=== PATIENT | male | born 1955 | race Caucasian/White ===

== ENCOUNTER 2021-11-22 11:12 | Emergency (ER) | payer SELFPAY ==
[2021-11-22 11:13] VITALS: BP 125/82; PULSE 97; RESP 20; TEMP 36.4; O2SAT 97; BMI 23.5
--- NOTE | 2021-11-22 11:24 | ECG_ITS ---
[facility] Test Date: 2021-11-22 Pat Name: Tristen Chaves Department: Room: Gender: Male Fisher: : 1955 Requested By: Morales Price Order Number: [id number] Oro MD: Douglas Hooper M.D. Measurements Intervals [place] Rate: 91 P: 25 NM: 152 QRS: 29 QRSD: 87 T: 71 QT: 344 QTc: 425 Interpretive Statements SINUS RHYTHM Compared to ECG 10/25/2018 14:25:05 No significant changes Electronically Signed On 11-22-2021 14:23:40 CDT by Douglas Hooper M.D. [id number]
--- NOTE | 2021-11-22 11:24 | XR_ITS ---
WS: [id number] Portable AP upright chest, 11/22/2021 Clinical Data: cp Comparison: Portable chest, 10/23/2018. Findings: No nodules, masses or effusions are seen. The heart is normal. The pulmonary vascularity is not increased. No pneumonia or pneumothorax is seen. The aortic arch and descending thoracic aorta s how minimal calcification and tortuosity. Monitor leads are on the chest wall. There is minimal right pleural reaction. XR/XR chest 1V portable [id number] Impression: Atherosclerosis.
--- NOTE | 2021-11-22 11:26 | W.ED.CHESTPA ---
HPI - Chest Pain General: Chief Complaint: Chest Pain Stated Complaint: chest pain Time Seen by Provider: 11/22/21 11:26 History of Present Illness: Mr. Chaves is a 66-year-old gentleman with history of hypertension, hyperlipidemia, CAD with history of MD, continued tobacco use, medication noncompliance who presents to the emergency department due to chest pain. He reports onset of symptoms approximately 2 days ago with left chest pain without significant radiation. Since that time severe pain has persisted associated with nausea, 1 episode of vomiting, and generalized weakness and malaise. Overall course of symptoms has persisted. This feels different than prior episodes of chest pain. He does have a history of MD. No other specific changes in health, exacerbating, or alleviating factors identified. Onset (ago): day(s) Timing of current episode: constant Prior episodes: Yes Onset: during rest Pain location: left chest Severity: severe Quality: other Associated symptoms: Reports dyspnea, nausea and other Review of Systems General: Reports: 10 or more systems reviewed and unremarkable except in HPI and below Resp: Reports: dyspnea GI: Reports: nausea PFSH ED PFSH: Medical History Anorexia CAD (coronary artery disease) Chronic alcoholism Depression GERD (gastroesophageal reflux disease) History of MD (myocardial infarction) Hypertension Smoker Surgical History (Updated 11/23/21 @ 14:00 by Geo Perdomo MD) H/O heart artery stent Post PCI with drug-eluting stent to PDA and LAD in 2017 Family History (Updated 11/23/21 @ 14:01 by Geo Perdomo MD) Other CAD (coronary artery disease) Social History (Updated 11/23/21 @ 14:01 by Geo Perdomo MD) Smoking and tobacco status: current every day smoker Alcohol intake: current Alcohol intake frequency: few times a week Alcohol type: hard liquor Desire information about alcohol rehabilitation?: No Counseling given: Yes Caregiver/support person: Yes Lives independently: Yes Household members: family Housing: House Physical Exam Const: COMMON NORMALS: alert GENERAL APPEARANCE: cooperative, well developed and ill appearing (Mildly) HENMT: COMMON NORMALS: normocephalic and atraumatic HEAD & SCALP: normocephalic and atraumatic Eye: COMMON NORMALS: conjunctivae normal CONJUNCTIVA: Yes conjunctivae normal SCLERA: sclerae normal Neck/C-Spine: COMMON NORMALS: supple GENERAL: Yes trachea midline Resp: COMMON NORMALS: normal respiratory effort and clear to auscultation bilaterally EFFORT & INSPECTION: Yes able to speak in complete sentences AUSCULTATION: clear to auscultation bilaterally Cardio: COMMON NORMALS: regular rate and regular rhythm RATE: regular rate RHYTHM: regular rhythm GI: COMMON NORMALS: Soft to palpation PALPATION: Yes Soft to palpation and No Tenderness to palpation present (GI) Extremity: GENERAL: Yes normal exam except as noted and No edema Neuro: COMMON NORMALS: moves all extremities SENSORIUM/ORIENTATION: Yes alert and No Orientation impaired Psych: COMMON NORMALS: mental status grossly normal and Normal thought process present THOUGHT PROCESS: Normal thought process present Course ED course: - Patient was seen and evaluated by me at bedside - Patient placed on cardiac monitors, IV access obtained - Initial evaluation notable for exam as above. EKG shows sinus rhythm, no STEMI - Labs and xrays personally interpreted by me -Aspirin given - Labs notable for minimal leukocytosis, normal hemoglobin. Metabolic panel without acute electrolyte derangement to explain symptoms. Given description of symptoms and patient cannot be ruled out by PERC/Wells D-dimer ordered and was elevated. Delta troponin is negative. - Imaging notable for no lobar consolidation or pneumothorax. CTA with no evidence of PE. Incidental findings discussed. - Upon serial reexamination after treatment the patient was improved - Based on patient history, evaluation, and testing as interpreted the most likely cause of the patient's condition is chest pain of uncertain etiology - The results of ED evaluation were discussed with the patient including possible disposition options. I discussed risk stratification by heart score and estimated risk of major adverse cardiac events. The patient wishes to proceed with outpatient management. I discussed prescriptions and/or symptomatic cares (if applicable) including appropriate and responsible use, followup plan, and return precautions. The patient verbalized understanding and felt safe for discharge. - Patient discharged in satisfactory condition. Note: Click bubbles or prepopulated tarango in note writing are used for assistance with data collection and billing and are inherently more limited than narrative and other text portions of this note. Please use narrative for additional clinical history and defer to narrative/free test for any case of contradictory information. If information appears in only free text or click bubble it should be considered present or absent as reported. Please contact note global technical writer for clarifications of clinical information or contradictory information. MDM is a brief summary, contradictory or erroneous seeming information should be clarified and full note should be reviewed. Vital Signs: Vital signs: Vital Signs Temperature 97.6 F 11/22/21 11:13 Pulse Rate 80 11/22/21 14:07 Respiratory Rate 21 H 11/22/21 14:07 Blood Pressure 137/93 11/22/21 14:07 Pulse Oximetry 98 11/22/21 14:07 Oxygen Delivery Me thod 11/22/21 11:13 MDM - Chest Pain Medical Decision Making 66-year-old gentleman presenting with chest pain. Unclear etiology based on ED evaluation. Patient desires outpatient management. Strict return precautions given. Medical Records I reviewed the patient's medical records. Lab Data I reviewed the patient's lab results. : 11/22/21 11:54 11/22/21 11:54 Radiology Impressions Chest X-Ray 11/22/21 11:24 Impression: Atherosclerosis. Chest CTA 11/22/21 12:27 IMPRESSION: 1. No evidence for pulmonary embolus. 2. Slightly prominent ascending thoracic aorta measuring 3.6 cm unchanged. 3. No acute pulmonary infiltrates. 4. 4.5 mm noncalcified nodule RIGHT middle lobe. This is unchanged since 2017 5. Mild chronic compression of T3 is unchanged. Laboratory Results WBC 11.0 10^3/uL (4.0-10.0) H 11/22/21 11:54 RBC 4.21 10^6/uL (4.1-5.3) 11/22/21 11:54 Hgb 14.4 g/dL (11.7-16.6) 11/22/21 11:54 Hct 41.2 % (42.0-52.0) L 11/22/21 11:54 MCV 97.9 fl (80-94) H 11/22/21 11:54 MCH 34.2 pg (28.0-34.0) H 11/22/21 11:54 MCHC 35.0 g/dL (30.0-36.0) 11/22/21 11:54 RDW 13.1 % (12.1-15.1) 11/22/21 11:54 Plt Count 266 10^3/cmm (130-400) 11/22/21 11:54 MPV 9.6 fL (7.4-10.4) 11/22/21 11:54 Neut % (Auto) 74.7 % 11/22/21 11:54 Lymph % (Auto) 11.5 % 11/22/21 11:54 Daniels % (Auto) 10.7 % 11/22/21 11:54 Eos % (Auto) 2.1 % 11/22/21 11:54 Baso % (Auto) 0.5 % 11/22/21 11:54 Neut # (Auto) 8.20 10^3/uL (1.8-7.7) H 11/22/21 11:54 Lymph # (Auto) 1.3 10^3/uL (0.8-4.8) 11/22/21 11:54 Daniels # (Auto) 1.2 10^3/uL (0.2-0.9) H 11/22/21 11:54 Eos # (Auto) 0.2 10^3/uL (0.0-0.8) 11/22/21 11:54 Baso # (Auto) 0.1 10^3/uL (0.0-0.1) 11/22/21 11:54 Nucleated RBC % (auto) 0 % 11/22/21 11:54 Nucleated RBCs # 0.0 /100WBC 11/22/21 11:54 D-Dimer 3.67 ug/mIFEU (0-0.59) H 11/22/21 11:54 Sodium 139 mmol/L (136-145) 11/22/21 11:54 Potassium 4.1 mmol/L (3.5-5.1) 11/22/21 11:54 Chloride 101 mmol/L (98-107) 11/22/21 11:54 Carbon Dioxide 24 mmol/L (22-29) 11/22/21 11:54 Anion Gap 18.1 (5-19) 11/22/21 11:54 BUN 31 mg/dL (8-23) H 11/22/21 11:54 Creatinine 1.1 mg/dL (0.7-1.2) 11/22/21 11:54 GFR Calculation 67.2 mL/min (90-130) L 11/22/21 11:54 Glucose 93 mg/dL (65-115) 11/22/21 11:54 Calculated Osmolality 294 mOsm/kg (285-295) 11/22/21 11:54 Calcium 9.5 mg/dL (8.5-10.5) 11/22/21 11:54 Total Bilirubin 0.3 mg/dL (0.15-1.2) 11/22/21 11:54 AST 36 U/L (0-40) 11/22/21 11:54 ALT 26 U/L (0-41) 11/22/21 11:54 Alkaline Phosphatase 98 U/L (40-130) 11/22/21 11:54 Troponin T Baseline 11 ng/L (0-15) 11/22/21 11:54 Troponin T 120 Minute 10.92 ng/L (0-15) 11/22/21 13:40 Delta Troponin T -0.08 ABS# (0-10) L 11/22/21 13:40 NT-Pro-B Natriuret Pep 87 pg/mL (0-125) 11/22/21 11:54 Total Protein 7.6 g/dL (6.6-8.7) 11/22/21 11:54 Albumin 4.0 g/dL (3.5-5.2) 11/22/21 11:54 Globulin 3.6 g/dL (1.3-4.6) 11/22/21 11:54 Lipase 29 U/L (13-60) 11/22/21 11:54 SARS-CoV-2 Ag (Rapid) Negative (Negative) 11/22/21 Unknown Discharge Plan Discharge Patient Disposition: Home Clinical Impression: Chest pain, History of MD (myocardial infarction), CAD (coronary artery disease) Condition: Stable Prescriptions: No Action losartan 50 mg Tablet 50 mg PO DAILY Qty: 30 0RF Vitamin B-12 1,000 mcg Tablet 1,000 mcg PO DAILY Qty: 30 0RF famotidine 20 mg Tablet 20 mg PO BID Qty: 60 0RF metoprolol tartrate 50 mg Tablet 50 mg PO BID@0900,2100 Qty: 60 0RF folic acid 1 mg Tablet 1 mg PO BID Qty: 60 0RF aspirin 81 mg Tablet,Delayed Release (Dr/Ec) 81 mg PO DAILY Qty: 30 0RF atorvastatin 40 mg tablet 40 mg PO DAILY Qty: 30 0RF Discharge Orders: Discharge ED (Routine); Ordered 11/22/21 Ordered By: Morales Price Referrals: Nicholas Marte MD [Primary Care Provider] - Discharge Diet: Usual diet Discharge Activity: Increase activity as tolerated Patient Instructions: Chest Pain (ED) Activity Restrictions/Additional Instructions: Thank you for visiting the emergency department. You were seen evaluated for chest pain. The exact cause of your chest pain is unclear however given your history does require further evaluation. You are electing to have this performed in the outpatient environment. I will message case management for follow-up regarding outpatient cardiology follow-up and stress test. Please establish and follow-up with a primary care provider as well. Return to the emergency department for worsening symptoms or anything else that you are concerned about a feel needs emergency department evaluation. 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
--- NOTE | 2021-11-22 11:41 | PC.PHAR ---
pt states takes metoprolol prn states this is his mothers rx-states the bottle has take one and one-half tab bid pt states he just takes one tab daily prn-pt states he is unsure if its tartrate or succinate-pt states he had a proair inhaler but no longer has rx filled 03/19/21-notes are made in the pharmacy comments-pt states takes no other medications
[2021-11-22 11:42] VITALS: BP 131/90; PULSE 88; RESP 18; O2SAT 98
[2021-11-22] MEDS: aspirin 81 mg Chew Tablet 324 MG PO (11:49)
[2021-11-22 12:00] LABS: Basophils # 0.1 10^3/uL (0.0-0.1); Basophils % 0.5 %; Eosinophils # 0.2 10^3/uL (0.0-0.8); Eosinophils % 2.1 %; Hematocrit 41.2 % (42.0-52.0); Hemoglobin 14.4 g/dL (11.7-16.6); Lymphocytes # 1.3 10^3/uL (0.8-4.8); Lymphocytes % 11.5 %; Mean Corpuscular Hemoglobin 34.2 pg (28.0-34.0); Mean Corpuscular Volume 97.9 fl (80-94); Mean Platelet Volume 9.6 fL (7.4-10.4); Monocytes # 1.2 10^3/uL (0.2-0.9); Monocytes % 10.7 %; Neutrophils % 74.7 %; Nucleated Red Blood Cells % 0 %; Platelet Count 266 10^3/cmm (130-400); Red Blood Count 4.21 10^6/uL (4.1-5.3); Red Cell Distribution Width 13.1 % (12.1-15.1)
--- NOTE | 2021-11-22 12:17 | PC.NURSE ---
Patient placed on continuous cardiac and SPo2 monitor
[2021-11-22 12:20] LABS: Troponin(5th) Baseline 11 ng/L (0-15)
[2021-11-22 12:26] LABS: D Dimer 3.67 ug/mIFEU (0-0.59)
--- NOTE | 2021-11-22 12:27 | CT_ITS ---
WS: [id number] CTA OF THE CHEST WITH PULMONARY EMBOLISM PROTOCOL TECHNIQUE: High-resolution contrast enhanced CTA of the chest with coronal and sagittal reformatted i mones with pulmonary embolism protocol. MIP images are also reviewed. CLINICAL INFORMATION: Chest pain, elevated D-dimer, ?history of cancer COMPARISON: CTA chest 2016. CT chest 2017 DLP: 415.[address] scans at [facility] use at least one of these dose optimization techniques: automated e xposure control; mA and/or kV adjustment per patient size (includes targeted exams where dose is matc hed to clinical indication); or iterative reconstruction. FINDINGS: Proximal main pulmonary arteries are normal. Normal segmental and subsegmental pulmonary arteries. No evidence of pulmonary embolus. Ascending thoracic aorta measures 3.6 cm. Normal caliber descending t horacic aorta. Mild aortic calcification. Small numerous anterior mediastinal and peribronchial lymph nodes. No axillary lymphadenopathy. Moderate chronic emphysematous changes. No acute pulmonary infiltrates. No focal pneumonia or pleural fluid. Slight bibasilar atelectasis. Calcified granulomas RIGHT middle lobe. Noncalcified nodule RIG HT upper lobe measuring 4.5 mm. Normal GE junction. Adrenal glands are normal. Chronic anterior wedging in the upper thoracic spine. CT/CT angio chest PE protcl [id number] IMPRESSION: 1. No evidence for pulmonary embolus. 2. Slightly prominent ascending thoracic aorta measuring 3.6 cm unchanged. 3. No acute pulmonary infiltrates. 4. 4.5 mm noncalcified nodule RIGHT middle lobe. This is unchanged since 2017 5. Mild chronic compression of T3 is unchanged.
[2021-11-22 12:28] LABS: Alanine Aminotransferase 26 U/L (0-41); Alkaline Phosphatase 98 U/L (40-130); Anion Gap 18.1 (5-19); Aspartate Amino Transferase 36 U/L (0-40); Blood Urea Nitrogen 31 mg/dL (8-23); Calcium 9.5 mg/dL (8.5-10.5); Carbon Dioxide 24 mmol/L (22-29); Chloride 101 mmol/L (98-107); Creatinine Clr Calc Pharmacy 78.1466; Globulin 3.6 g/dL (1.3-4.6); Glomerular Filtration Rate 67.2 mL/min (90-130); Glucose 93 mg/dL (65-115); Lipase 29 U/L (13-60); NT Pro B Type Natriuretic Pept 87 pg/mL (0-125); Osmolality Calculated 294 mOsm/kg (285-295); Potassium 4.1 mmol/L (3.5-5.1); Sodium 139 mmol/L (136-145); Total Bilirubin 0.3 mg/dL (0.15-1.2); Total Protein 7.6 g/dL (6.6-8.7)
[2021-11-22 12:32] LABS: SARS Covid-2 Antigen Negative (Negative)
[2021-11-22] MEDS: iohexol 350 mg/mL 100 mL Btl IV (13:10)
--- NOTE | 2021-11-22 13:23 | ECG_ITS ---
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 Measurements Intervals [place] Rate: 75 P: 50 AL: 170 QRS: 38 QRSD: 87 T: 69 QT: 391 QTc: 437 Interpretive Statements SINUS RHYTHM Compared to ECG 11/22/2021 11:24:26 No significant changes Electronically Signed On 11-22-2021 14:37:48 CDT by Douglas Hooper M.D. [id number]
[2021-11-22 14:01] LABS: Troponin 5 2HR 10.92 ng/L (0-15)
[2021-11-22 14:06] LABS: Troponin 5 2HR Delta -0.08 ABS# (0-10)
[2021-11-22 14:07] VITALS: BP 137/93; PULSE 80; RESP 21; O2SAT 98
--- NOTE | 2021-11-22 17:12 | DCPLANNER ---
Addendum entered by Lucinda Gomes 03/14/22 14:07: Patient had a follow up appointment scheduled with heart care - patient did not attend appointment. Addendum entered by Lucinda Gomes 11/27/21 08:31: Patient has a follow up appointment scheduled for , January 23, 2022 at 3:[address] Richard at [facility]. Clinic will call patient with appointment information. Original Note: commercial finance manager had message to schedule a follow up appointment for patient with cardiology. commercial finance manager sent patients information to the front office staff at [facility]. Patients information will be printed and reviewed. Clinic will call patient with appointment information.
--- NOTE | 2021-11-22 17:24 | DCPLANNER ---
Addendum entered by Lucinda Gomes 03/05/22 10:59: Patient did not attend the echo scheduled for 12.18.21 Addendum entered by Lucinda Gomes 11/28/21 11:42: industrial production manager also had message to schedule an echo cardiogram for patient. Patient has an echo scheduled for Saturday, December 18, 2021 at 6:15. Centralized scheduling will call patient with appointment information. Addendum entered by Lucinda Gomes 11/26/21 09:06: Patient had a stress test scheduled for 11.25.21 - patient did attend stress test. Original Note: industrial production manager had message to schedule an outpatient stress test for patient. industrial production manager faxed signed order to centralized scheduling who will call patient with appointment information.
== END 2021-11-22 14:09 | disposition home or self-care (01) ==
PROVIDERS: Emergency Provider Emergency Medicine; PCP Family Medicine
DX: R07.9 Chest pain, unspecified (principal); I25.2 Old myocardial infarction; I25.10 Atherosclerotic heart disease of native coronary artery without angina pectoris; Z79.82 Long term (current) use of aspirin; Z20.822 Contact with and (suspected) exposure to COVID-19; I10 Essential (primary) hypertension; F17.210 Nicotine dependence, cigarettes, uncomplicated
CPT/HCPCS: 71045; 71275; 80053; 83690; 83880; 84484; 85025; 85378; 87426; 93005; 99285; Q9967

== ENCOUNTER 2021-11-23 09:52 | Observation (INO) | payer SELFPAY ==
[2021-11-23] VITALS (8 sets, daily range): BP systolic 145–196; BP diastolic 85–106; PULSE 68–87; RESP 16–22; TEMP 36.3–36.9; O2SAT 94–97; BMI 23.5
--- NOTE | 2021-11-23 10:04 | XRR_ITS ---
PROCEDURE INFORMATION: Exam: XR Chest Exam date and time: 11/23/2021 10:48 AM Age: 66 years old Clinical indication: Pain; Angina pectoris; Additional info: Chest pain TECHNIQUE: Imaging protocol: Radiologic exam of the chest. Views: 1 view. COMPARISON: CR XR chest 1V portable [id number] 11/22/2021 11:28 AM FINDINGS: Lungs: No focal airspace disease. Pleural spaces: Unremarkable. No pleural effusion. No pneumothorax. Heart/Mediastinum: Cardiomediastinal silhouette is within normal limits. Bones/joints: Unremarkable. XR/XR chest 1V portable [id number] IMPRESSION: No acute cardiopulmonary abnormality.
--- NOTE | 2021-11-23 10:06 | ED_ITS ---
HPI - General Adult General: Chief complaint: Chest Pain Stated complaint: cp Time Seen by Provider: 11/23/21 10:02 History of Present Illness: Mr. Chaves is a 66-year-old gentleman with history of hypertension, hyperlipidemia, CAD with history of IN, continued tobacco use, medication noncompliance who presents to the emergency department due to chest pain. Patient tells me he has been having chest pain for the last 4 days. Initially patient was seen yesterday in the emergency room recommend admission. However at that time, patient declined admission. Patient came into the e mergency room due to worsening of chest pain. Patient reports that he has exertional dyspnea and lightheadedness with the chest pain. Patient denies any fever/chills, sore throat, diarrhea melena or loss of taste. Patient denies any lower extremity swelling. Never had any cardiac work-up in the past Onset: 4 days ago Duration:4 days Location:home Severity:moderate Associated symptoms: Reports chest pain; Deny dyspnea, nausea, rash, palpitations or vomiting Review of Systems Const: Denies: fever(s) or chills Eyes: Denies: change in vision ENMT: Denies: mouth pain Card: Reports: chest pain and dyspnea on exertion; Denies: palpitations Resp: Denies: dyspnea or non-productive cough GI: Denies: abdominal pain, nausea, vomiting or diarrhea : Denies: dysuria Musc: Denies: extremity pain Skin/Breast: Denies: rash or new lesions Neuro: Reports: other (+light-headedness); Denies: weakness in extremities Psych: Reports: other (Normal mood) Mike/Lymph: Denies: easy bruising [facility] ED PFSH: Medical History CAD (coronary artery disease) History of IN (myocardial infarction) Hypertension Surgical History No significant past surgical history Social History Smoking and tobacco status: current every day smoker Physical Exam Const: COMMON NORMALS: alert HENMT: COMMON NORMALS: atraumatic HEAD & SCALP: atraumatic MOUTH: moist mucous membranes not abnormal Eye: COMMON NORMALS: EOMs intact bilaterally and conjunctivae normal CONJUNCTIVA: Yes conjunctivae normal Neck/C-Spine: COMMON NORMALS: full ROM and supple Resp: COMMON NORMALS: normal respiratory effort and clear to auscultation bilaterally AUSCULTATION: clear to auscultation bilaterally Cardio: COMMON NORMALS: regular rate RATE: regular rate OTHER: 2+ radial pulses b/l GI: COMMON NORMALS: Soft to palpation and non-tender PALPATION: Yes Soft to palpation OTHER: No focal TTP. NO guarding rebound, guarding, rigidity. No CVA tenderness to percussion. Neg Bernal/Neg McBurney's point tenderness, no suprabupic tenderness to palpation. Extremity: COMMON NORMALS: full ROM Neuro: SENSORIUM/ORIENTATION: Yes alert MOTOR EXAM: No Abnormal motor strength present and Other motor observations present (no focal motor deficits) Psych: COMMON NORMALS: speech normal SPEECH: Yes normal speech MOOD & AFFECT: Yes euthymic mood Course Vital Signs: Vital signs: Vital Signs Temperature 97.3 F L 11/23/21 10:00 Pulse Rate 83 11/23/21 10:00 Respiratory Rate 22 H 11/23/21 10:34 Blood Pressure 146/98 11/23/21 10:00 Pulse Oximetry 97 11/23/21 10:00 Oxygen Delivery Me thod 11/23/21 10:00 [facility] - General Adult Medical Decision Making Mr. Chaves is a 66-year-old gentleman with history of hypertension, hyperlipidemia, CAD with history of IN, continued tobacco use, medication noncompliance who presents to the emergency department due to chest pain. She has a heart score greater than 5. EKG is nonischemic. Troponin is within normal limit. Chest appears to be clear. Patient admitted to hospital for further evaluation of symptoms. Disposition: admission Lab Data : 11/23/21 10:05 11/23/21 10:05 Radiology Impressions Chest X-Ray 11/23/21 10:04 IMPRESSION: No acute cardiopulmonary abnormality. Laboratory Results WBC 8.7 10^3/uL (4.0-10.0) 11/23/21 10:05 RBC 3.96 10^6/uL (4.1-5.3) L 11/23/21 10:05 Hgb 13.6 g/dL (11.7-16.6) 11/23/21 10:05 Hct 38.8 % (42.0-52.0) L 11/23/21 10:05 MCV 98.0 fl (80-94) H 11/23/21 10:05 MCH 34.3 pg (28.0-34.0) H 11/23/21 10:05 MCHC 35.1 g/dL (30.0-36.0) 11/23/21 10:05 RDW 13.2 % (12.1-15.1) 11/23/21 10:05 Plt Count 267 10^3/cmm (130-400) 11/23/21 10:05 MPV 10.1 fL (7.4-10.4) 11/23/21 10:05 Neut % (Auto) 60.9 % 11/23/21 10:05 Lymph % (Auto) 22.6 % 11/23/21 10:05 [place] % (Auto) 12.1 % 11/23/21 10:05 Eos % (Auto) 3.5 % 11/23/21 10:05 Baso % (Auto) 0.6 % 11/23/21 10:05 Neut # (Auto) 5.27 10^3/uL (1.8-7.7) 11/23/21 10:05 Lymph # (Auto) 2.0 10^3/uL (0.8-4.8) 11/23/21 10:05 [place] # (Auto) 1.1 10^3/uL (0.2-0.9) H 11/23/21 10:05 Eos # (Auto) 0.3 10^3/uL (0.0-0.8) 11/23/21 10:05 Baso # (Auto) 0.1 10^3/uL (0.0-0.1) 11/23/21 10:05 Nucleated RBC % (auto) 0 % 11/23/21 10:05 Nucleated RBCs # 0.0 /100WBC 11/23/21 10:05 Sodium 148 mmol/L (136-145) H 11/23/21 10:05 Potassium 3.8 mmol/L (3.5-5.1) 11/23/21 10:05 Chloride 105 mmol/L (98-107) 11/23/21 10:05 Carbon Dioxide 29 mmol/L (22-29) 11/23/21 10:05 Anion Gap 17.8 (5-19) 11/23/21 10:05 BUN 24 mg/dL (8-23) H 11/23/21 10:05 Creatinine 1.1 mg/dL (0.7-1.2) 11/23/21 10:05 GFR Calculation 67.2 mL/min (90-130) L 11/23/21 10:05 Glucose 110 mg/dL (65-115) 11/23/21 10:05 Calculated Osmolality 311 mOsm/kg (285-295) H 11/23/21 10:05 Calcium 9.6 mg/dL (8.5-10.5) 11/23/21 10:05 Troponin T Baseline 10 ng/L (0-15) 11/23/21 10:05 Imaging Data Other Imaging: Radiologist's impression: [id number] [address] XRay Report Signed Patient: Tristen Chaves Unit #: [id number] : 1955 Age/Sex: 66 / M ADM Date: 11/23/21 Loc: ER Room/Bed: Attending Dr: Ordering Provider/Ordering MD: Mello Reed MD Date of Service: 11/23/21 Procedure(s): XR chest 1V portable [id number] Accession Number(s): [id number] Report Number: [id number] PROCEDURE INFORMATION: Exam: XR Chest Exam date and time: 11/23/2021 10:48 AM Age: 66 years old Clinical indication: Pain; Angina pectoris; Additional info: Chest pain TECHNIQUE: Imaging protocol: Radiologic exam of the chest. Views: 1 view. COMPARISON: CR XR chest 1V portable [id number] 11/22/2021 11:28 AM FINDINGS: Lungs: No focal airspace disease. Pleural spaces: Unremarkable. No pleural effusion. No pneumothorax. Heart/Mediastinum: Cardiomediastinal silhouette is within normal limits. Bones/joints: Unremarkable. XR/XR chest 1V portable [id number] IMPRESSION: No acute cardiopulmonary abnormality. ? Dictated By: Kenya Salas MD Signed By: Kenya Salas MD Signed Date/Time: 11/23/21 1154 DD/ 1048 Discharge Plan Discharge Patient Disposition: Admitted As Inpatient Clinical Impression: Chest pain Condition: Stable Coding Level of Care Code ED Insurance Advisor for Chg Fwd Exam Comprehensive
--- NOTE | 2021-11-23 10:08 | ECG_ITS ---
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 Measurements Intervals [place] Rate: 83 P: 29 LA: 163 QRS: 3 QRSD: 87 T: 71 QT: 375 QTc: 441 Interpretive Statements SINUS RHYTHM Compared to ECG 11/22/2021 13:23:56 No significant changes Electronically Signed On 11-24-2021 13:20:44 CDT by Douglas Hooper M.D. [id number]
[2021-11-23 10:31] LABS: Basophils # 0.1 10^3/uL (0.0-0.1); Basophils % 0.6 %; Eosinophils # 0.3 10^3/uL (0.0-0.8); Eosinophils % 3.5 %; Hematocrit 38.8 % (42.0-52.0); Hemoglobin 13.6 g/dL (11.7-16.6); Lymphocytes % 22.6 %; Mean Corpuscular HGB Conc 35.1 g/dL (30.0-36.0); Mean Corpuscular Hemoglobin 34.3 pg (28.0-34.0); Mean Platelet Volume 10.1 fL (7.4-10.4); Monocytes # 1.1 10^3/uL (0.2-0.9); Monocytes % 12.1 %; Neutrophils # 5.27 10^3/uL (1.8-7.7); Neutrophils % 60.9 %; Nucleated Red Blood Cells % 0 %; Platelet Count 267 10^3/cmm (130-400); Red Blood Count 3.96 10^6/uL (4.1-5.3); Red Cell Distribution Width 13.2 % (12.1-15.1); White Blood Count 8.7 10^3/uL (4.0-10.0)
[2021-11-23] MEDS: aspirin 325 mg Tablet PO (10:34)
[2021-11-23] MEDS: morphine 4 mg/mL SDV 1 mL IVP (10:34)
[2021-11-23 10:40] LABS: Anion Gap 17.8 (5-19); Blood Urea Nitrogen 24 mg/dL (8-23); Calcium 9.6 mg/dL (8.5-10.5); Carbon Dioxide 29 mmol/L (22-29); Chloride 105 mmol/L (98-107); Creatinine Clr Calc Pharmacy 78.1466; Glomerular Filtration Rate 67.2 mL/min (90-130); Glucose 110 mg/dL (65-115); Osmolality Calculated 311 mOsm/kg (285-295); Potassium 3.8 mmol/L (3.5-5.1); Sodium 148 mmol/L (136-145); Troponin(5th) Baseline 10 ng/L (0-15)
[2021-11-23] MEDS: nitroglycerin 0.4 mg sublingual Tablet SUBLINGUAL ×2 (11:31→11:37)
--- NOTE | 2021-11-23 12:05 | ECG_ITS ---
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 Measurements Intervals [place] Rate: 84 P: TN: QRS: 23 QRSD: 84 T: 71 QT: 383 QTc: 455 Interpretive Statements SINUS RHYTHM MODERATE T-WAVE ABNORMALITY, CONSIDER INFERIOR ISCHEMIA [-0.1+ mV T-WAVE IN II/aVF] Compared to ECG 11/23/2021 10:08:24 T-wave abnormality now present Possible ischemia now present Electronically Signed On 11-24-2021 13:27:54 CDT by Douglas Hooper M.D. [id number]
[2021-11-23 12:50] LABS: Troponin 5 2HR 8.45 ng/L (0-15)
--- NOTE | 2021-11-23 13:52 | USCV_ITS ---
Tristen Chaves Age: 66 Gender: M : 1955 Exam Date: 11/23/2021 14:37 Ordering Phys: Geo Perdomo MD Technologist: JONATHAN [place] [facility] [place]: CAD, CHEST PAIN BP: 150 / 98 HR: 77 Rhythm: Sinus Technical Quality: Adequate MEASUREMENTS (Male / Female) Normal Values 2D ECHO LV Diastolic Diameter PLAX 4.5 cm 4.2 - 5.9 / 3.9 - 5.3 cm LV Systolic Diameter PLAX 2.8 cm IVS Diastolic Thickness 1.3 cm 0.6 - 1.0 / 0.6 - 0.9 cm IVS Systolic Thickness 1.9 cm LVPW Diastolic Thickness 1.5 cm 0.6 - 1.0 / 0.6 - 0.9 cm LVPW Systolic Thickness 2.0 cm LVOT Diameter 2.0 cm LV Ejection Fraction 2D Teich 68.1 % LV Ejection Fraction MOD 2C 76.8 % LV Ejection Fraction 2C AL 75.7 % LA Diameter 3.5 cm LA Width 3.7 cm LA Height 5.1 cm RA Width 3.9 cm RA Height 4.5 cm Aorta at Sinotubular Diameter 2.5 cm IVC Diameter 2.1 cm M-MODE Aortic Annulus Diameter 3.4 cm LA Ao Ratio MM 1.1 MV E Point Septal Separation 0.2 cm DOPPLER AV Peak Velocity 177.5 cm/s LVOT Peak Velocity 108.0 cm/s AV Area Cont Eq vti 2.0 cm squared AV Area Cont Eq pk 1.9 cm squared MV Peak Velocity 109.0 cm/s MV Area PHT 5.0 cm squared Mitral E to A Ratio 1.3 MV E' Velocity 51.5 cm/s Mitral E to MV E' Ratio 8.6 Mitral E to LV E' Lateral Ratio 9.1 Mitral E to LV E' Septal Ratio 8.2 TR Peak Velocity 173.3 cm/s TR Peak Gradient 12.0 mmHg TR Mean Velocity 129.3 cm/s TR Mean Gradient 7.3 mmHg TR Velocity Time Integral 38.3 cm TV Peak E Velocity 73.0 cm/s Right Atrial Pressure 3.0 mmHg Pulmonary Artery Systolic Pressu 15.0 mmHg PV Peak Velocity 92.0 cm/s RV Acceleration Time 0.1 s RV Ejection Time 0.3 s RV AcT/ET 0.3 FINDINGS Left Ventricle Technically limited quality echocardiogram because of poor ultrasonic windows. LV systolic function is normal with EF of 55 to 60%. No regional wall motion abnormalities are seen. Diastolic function is normal Right Ventricle Normal in size and function Right Atrium Normal in size Left Atrium Normal in size Mitral Valve Grossly normal mitral valve. No significant stenosis or regurgitation. Aortic Valve Aortic valve is thickened. No significant stenosis or regurgitation Tricuspid Valve Trace tricuspid regurgitation. Insufficient TR jet to calculate RVSP. Pulmonic Valve Not well-visualized Pericardium Normal Aorta Normal in size IVC CONCLUSIONS LV systolic function is normal with EF of 55 to 60%. Diastolic function is normal. Trace tricuspid regurgitation. Compared to prior echocardiogram from 2017, no significant changes are seen. Douglas Hooper MD (Electronically Signed) Final Date: 23 November 2021 15:32 S
--- NOTE | 2021-11-23 13:53 | PM.HP ---
Providers/Chief Complaint Admitting Physician: Geo Perdomo MD Primary Care Provider: Nicholas Marte MD Chief Complaint: cp History of Present Illness Tristen Chaves is a 66 year old male with past medical history of CAD, post PCI to LAD and PDA in 2017, hypertension, noncompliance of medication, current smoker, chronic alcoholism, depression not on medications. Patient states he has not taken his medications for a long time. He is smokes a quarter to half a pack daily. Drinks at least 4-5 times a week. Usually drinks vodka cannot quantify. He presented the ER on 11/22 for ongoing left-sided localized, parasternal chest pain which was nonradiating, not referring associated with dizziness and nausea. Patient states he has been having similar chest pain for over a month but getting worse for over a week. He was advised to stay in in hospital for further evaluation and management but he declined and was discharged. Overnight he continued to have similar pain so he presented back to the ER today. Pain is aggravated on ambulation, taking a deep breath. Pain associated with dizziness, nausea but not with vomiting. Denies any PND. Denies any hemoptysis, shortness of breath, fevers, cough. As per patient and patient's family he has been losing weight for over a year. He is complaining of constipation. Has not had a colonoscopy ever in life. On review of labs his troponin cycle from 11/22 was negative. CTA chest was done which was negative for pulmonary embolism or lung masses. Today again troponin cycle so far has remained negative. Patient is agreeable to stay at least till Thursday for Lexiscan stress test. Review of Systems General: Reports: 10 or more systems reviewed and unremarkable except in HPI and below Const: Denies: fever(s), chills, body aches, change in appetite, change in weight, malaise, night sweats, diaphoresis, change in sleep pattern, daytime sleepiness or snoring Eyes: Denies: change in vision, blurry vision, photophobia, eye discomfort or eye discharge ENMT: Denies: throat pain, enlarged tonsils, hoarseness, mouth pain, oral sores, dry mouth, tinnitus, nasal congestion or post nasal drip Card: Denies: chest pain, palpitations, irregular heart rhythm, edema, swelling of feet/ankles, lightheadedness, syncope, pre-syncope, dyspnea on exertion, orthopnea, leg pain with exertion or acrocyanosis Resp: Denies: dyspnea, productive cough, non-productive cough, wheezing, stridor, pain on inspiration, change in phlegm color, hemoptysis or chest congestion GI: Denies: abdominal pain, nausea, vomiting, hematemesis, coffee ground emesis, dysphagia, heartburn, diarrhea, constipation, bloating, GI cramping, change in bowel habits, pain on defecation, hematochezia or melena : Denies: flank pain, difficulty urinating, dysuria, urinary frequency, urinary urgency, urinary hesitancy, urinary dribbling, difficulty starting urination, change in urine stream, nocturia or hematuria Musc: Denies: neck pain, back pain, extremity pain, joint pain, joint swelling, joint redness, joint stiffness or limited range of motion Neuro: Denies: headache(s), numbness in extremities, weakness in extremities, sensory changes, lack of coordination, difficulty walking, frequent falls, dizziness, vertigo, confusion, Slurred speech present, difficulty communicating thoughts or seizure-like activity Psych: Denies: anxiety, depression, mood swings, panic attacks, hopelessness or irritability Endo: Denies: polyuria, polydipsia, tired all the time, cold intolerance, excessive sweating, flushing or heat intolerance Mike/Lymph: Denies: easy bruising or easy bleeding All/Imm: Denies: tongue swelling, facial swelling or acute wheezing Medications/Allergies Home Medications Medication Instructions Recorded Confirmed Last Taken Type aspirin 81 mg tablet,delayed 81 mg PO DAILY 11/22/21 11/23/21 Unknown History release metoprolol tartrate 50 mg tablet 50 mg PO DAILY 11/22/21 11/23/21 Unknown History Allergies Allergy/AdvReac Type Severity Reaction Status Date / Time No Known Allergies Allergy Verified 11/22/21 11:39 PFSH Acute PFSH: Medical History CAD (coronary artery disease) Chronic alcoholism History of NM (myocardial infarction) Hypertension Smoker Surgical History (Updated 11/23/21 @ 14:00 by Geo Perdomo MD) H/O heart artery stent Post PCI with drug-eluting stent to PDA and LAD in 2017 Family History (Updated 11/23/21 @ 14:01 by Geo Perdomo MD) Other CAD (coronary artery disease) Social History (Updated 11/23/21 @ 14:01 by Geo Perdomo MD) Smoking and tobacco status: current every day smoker Alcohol intake: current Alcohol intake frequency: few times a week Alcohol type: hard liquor Desire information about alcohol rehabilitation?: No Counseling given: Yes Caregiver/support person: Yes Lives independently: Yes Household members: family Housing: House Vitals/I&O/Wt Last Vital Signs Temp 97.3 F L 11/23/21 10:00 Pulse 78 11/23/21 13:36 Resp 16 11/23/21 13:36 BP 150/98 11/23/21 13:36 Pulse Ox 97 11/23/21 13:36 O2 Del Method 11/23/21 12:57 Weight last 48 hrs Weight 83.007 kg Physical Exam Narrative: General: No acute distress, AO x3 HEENT: PERRLA, pupils bilaterally equal and reactive Chest: Normal vesicular breath sounds, diffuse rhonchi out of the lung tarango equal good air entry bilaterally CVS: S1-S2 regular, no murmurs, no tachycardia, no gallops, no rubs Abdomen: Soft, nontender, no organomegaly, bowel sounds present Neuro: No focal deficits, no facial deformity, AO x3, power 5/5 in all limbs Data : 11/23/21 10:05 11/23/21 10:05 A&P Assessment and plan (1) Chest pain: Status: Acute (2) CAD (coronary artery disease): Status: Acute (3) Hypertension: Status: Acute (4) Noncompliance: Status: Acute (5) Smoker: Status: Acute (6) Chronic alcoholism: Status: Acute Plan 66-year-old gentleman past medical history of CAD, post PCI around 4 years ago, noncompliant to medications presented with ongoing chest pain for last 1 month worsening for last 1 week. This is her second visit over the last 2 days to the ER. PE ruled out on previous visit. Chest pain: Though atypical but given history of CAD and noncompliance of medications it would be important to rule out ACS. Cycle troponins. Restart aspirin, statins. Restart metoprolol 50 mg twice daily. Monitor blood pressures. Target blood pressure less than 140/90 on Hg. Restart home dose of losartan. Will uptitrate depending on blood pressures. Check A1c, lipid panel. Lexiscan stress test on Thursday. N.p.o. after Thursday midnight. Echocardiogram. For now we will continue with Lovenox on prophylactic dose. We will switch to therapeutic dose if troponins trending up. PE ruled out on CTA done on 11/22. Ruled out any significant lung mass. Does have right-sided lung nodule which is stable since 2017. Chronic alcoholism: [facility] protocol. Discussed in detail with patient regarding abstinence. Smoking abstinence. Full code. Regular diet. Famotidine 4. Prophylaxis Lovenox for DVT prophylaxis. Attestations Medical Necessity Statement*: Admission under observation for management of chest pain while ACS is ruled out Time Spent in Patient Care: Greater than 35 minutes Coding Level of Care Code Acute Composing Room Machinist for g Fwd Diagnoses Chest pain R07.9 CAD (coronary artery disease) I25.10 Hypertension I10 Noncompliance Z91.19 Smoker F17.200 Chronic alcoholism F10.20
[2021-11-23] MEDS: magnesium hydroxide 30 mL UDC PO (14:18)
[2021-11-23] MEDS: lactulose oral liq 20 gm/30 mL UDC 10 GM PO (14:18)
[2021-11-23] MEDS: dextrose 5%-sod chloride 0.45% 1,000 ML 50 ML IV (14:19)
[2021-11-23] MEDS: enoxaparin 30 mg/0.3 mL Syringe SUBCUT (14:19)
[2021-11-23 14:47] LABS: Estmated Average Glucose 111; Hemoglobin A1C 5.5 % (4.0-6.0)
[2021-11-23 14:59] LABS: Alcohol Level 135 mg/dL (0-10); Iron 63 ug/dL (59-158); Thyroid Stimulating Hormone 0.95 uIU/mL (0.27-4.20); Total Iron Binding Capacity 251 mcg/dl; Unsaturated Iron Binding 188 ug/dL (112-347); Vitamin B12 198 pg/mL (232-1245)
[2021-11-23 15:27] LABS: Troponin 5 2HR Delta -1.55 ABS# (0-10)
[2021-11-23] MEDS: ondansetron 2 mg/ML SDV 2 mL 4 MG IVP (15:45)
--- NOTE | 2021-11-23 16:05 | ECG_ITS ---
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 Measurements Intervals [place] Rate: 75 P: 38 SC: 168 QRS: -10 QRSD: 95 T: 33 QT: 411 QTc: 459 Interpretive Statements SINUS RHYTHM INFERIOR MYOCARDIAL INFARCTION , PROBABLY OLD [40+ ms Q WAVE AND/OR ST/T ABNORMALITY IN II/aVF] Compared to ECG 11/23/2021 12:04:02 Myocardial infarct finding now present Atrial flutter no longer present T-wave abnormality no longer present Possible ischemia no longer present Electronically Signed On 11-24-2021 13:27:18 CDT by Douglas Hooper M.D. [id number]
[2021-11-23 16:14] LABS: Ammonia 20 umol/L (16-60); Troponin 5 6HR 9.31 ng/L (0-15)
[2021-11-23 16:37] LABS: Folate Level 3.1 ng/mL (4.5-32.2)
[2021-11-23 16:50] LABS: Troponin 5 6HR Delta -0.69 ng/L (0-12)
--- NOTE | 2021-11-23 16:58 | PC.NURSE ---
patient states he is concerned that he may have cancer, patient states that it runs in his family on his mothers side and that he has lost more than 30lbs since March due to no appetite. he states his bowels have not been right , states he had a colonoscopy years ago where a dr told him he had issues, can't remember what it was but he never got it taken care of. patient states he feels tired all the time and generally not well. daughter at bed side and states that she too is concerned for his health and that she is not able to get him to go to the dr.
[2021-11-23] MEDS: ferrous gluconate 324 mg Tablet PO (18:02)
[2021-11-23] MEDS: cyanocobalamin 1,000 mcg/mL SDV 1000 MCG SUBCUT (18:02)
[2021-11-23] MEDS: famotidine 20 mg Tablet PO (18:02)
[2021-11-23] MEDS: folic acid 1 mg Tablet PO (18:02)
[2021-11-23] MEDS: metoprolol tartrate 50 mg Tablet PO (20:09)
[2021-11-23 20:54] LABS: Add Urine Microscopic? NO; Charge for UA Resulting for Rev
[2021-11-23 21:06] LABS: Bilirubin Urine Neg (Negative); Blood Urine Neg (Negative); Glucose Urine UA Trace (Normal); Ketones Urine Negative (Negative); Leukocyte Esterase Urine Negative (Negative); Nitrate Urine Negative (Negative); Protein Urine Neg (Negative); Sulfosalicylic Acid Urine Negative (Negative); Urine Appearance Clear (CLEAR); Urine Color Yellow (Yellow); Urobilinogen Urine Neg (Negative); pH Urine 8 (5-7)
[2021-11-23 21:11] LABS: Amphetamines Screen Urine Negative (Negative); Barbiturates Screen Urine Negative (Negative); Benzodiazepines Screen Urine Positive (Negative); Cocaine Screen Urine Negative (Negative); Opiate Screen Urine Positive (Negative); PCP Screen Urine Negative (Negative); THC Screen Urine Positive (Negative)
[2021-11-24] VITALS (11 sets, daily range): BP systolic 132–163; BP diastolic 86–96; PULSE 58–77; RESP 17–20; TEMP 36.7–37.1; O2SAT 92–99
[2021-11-24] MEDS: temazepam 15 mg Capsule 30 MG PO ×2 (01:25→20:24)
[2021-11-24 05:16] LABS: Basophils % 0.4 %; Eosinophils # 0.3 10^3/uL (0.0-0.8); Eosinophils % 4.3 %; Hematocrit 37.9 % (42.0-52.0); Hemoglobin 12.9 g/dL (11.7-16.6); Lymphocytes # 1.6 10^3/uL (0.8-4.8); Lymphocytes % 21.9 %; Mean Corpuscular Hemoglobin 33.9 pg (28.0-34.0); Mean Corpuscular Volume 99.7 fl (80-94); Mean Platelet Volume 9.9 fL (7.4-10.4); Monocytes # 0.8 10^3/uL (0.2-0.9); Monocytes % 10.9 %; Neutrophils # 4.52 10^3/uL (1.8-7.7); Neutrophils % 62.1 %; Nucleated Red Blood Cells % 0 %; Platelet Count 218 10^3/cmm (130-400); Red Cell Distribution Width 13.2 % (12.1-15.1); White Blood Count 7.3 10^3/uL (4.0-10.0)
[2021-11-24 05:45] LABS: Alanine Aminotransferase 27 U/L (0-41); Albumin Level 3.7 g/dL (3.5-5.2); Alkaline Phosphatase 98 U/L (40-130); Anion Gap 11.8 (5-19); Aspartate Amino Transferase 36 U/L (0-40); Blood Urea Nitrogen 16 mg/dL (8-23); Calcium 8.7 mg/dL (8.5-10.5); Carbon Dioxide 31 mmol/L (22-29); Chloride 98 mmol/L (98-107); Cholesterol 189 mg/dL (0-200); Globulin 2.9 g/dL (1.3-4.6); Glomerular Filtration Rate 84.7 mL/min (90-130); Glucose 97 mg/dL (65-115); HDL Cholesterol 59 mg/dL (60-100); LDL Cholesterol Calculated 107 mg/dL (50-129); Magnesium 1.6 mg/dL (1.7-2.3); Osmolality Calculated 285 mOsm/kg (285-295); Phosphorus 2.3 mg/dL (2.5-4.5); Potassium 3.8 mmol/L (3.5-5.1); Sodium 137 mmol/L (136-145); Total Bilirubin 0.7 mg/dL (0.15-1.2); Total Protein 6.6 g/dL (6.6-8.7); Triglycerides 117 mg/dL (0-150); VLDL Cholestrol Calculation 23 mg/dL (0-30)
[2021-11-24] MEDS: ferrous gluconate 324 mg Tablet PO ×2 (08:39→18:21)
[2021-11-24] MEDS: cyanocobalamin 1,000 mcg Tablet 1000 MCG PO (08:39)
[2021-11-24] MEDS: famotidine 20 mg Tablet PO ×2 (08:39→18:22)
[2021-11-24] MEDS: nicotine 14 mg Patch 1 PATCH TRANSDERMA (08:39)
[2021-11-24] MEDS: aspirin 81 mg EC Tablet PO (08:39)
[2021-11-24] MEDS: lactulose oral liq 20 gm/30 mL UDC 10 GM PO (08:39)
[2021-11-24] MEDS: magnesium hydroxide 30 mL UDC PO (08:39)
[2021-11-24] MEDS: losartan 50 mg Tablet PO (08:39)
[2021-11-24] MEDS: folic acid 1 mg Tablet PO ×2 (08:39→18:22)
[2021-11-24] MEDS: metoprolol tartrate 50 mg Tablet PO ×2 (09:58→20:24)
--- NOTE | 2021-11-24 13:56 | P.PN_ITS ---
Subjective Subjective: No acute events overnight. States he continues to have chest pain more so taking a deep breath and on palpation of his chest mostly in the left precordium. He complains of nausea but no vomiting. Still complaining of constipation. Blood pressures elevated but better than yesterday. No signs of alcohol withdrawal. Family at bedside. Vitals/I&O/Wt Last Vital Signs Temp 98.5 F 11/24/21 11:30 Pulse 64 11/24/21 11:30 Resp 18 11/24/21 11:30 BP 161/92 11/24/21 11:30 Pulse Ox 97 11/24/21 11:30 O2 Del Method 11/24/21 11:30 O2 Flow Rate 17 11/24/21 08:04 11/23/21 11/24/21 11/24/21 22:59 06:59 14:59 Intake Total 420 / 420 300 / 720 1480 / 1480 Output Total 550 / 550 800 / 1350 Balance -130 / -130 -500 / -630 1480 / 1480 Weight last 48 hrs Weight 80.467 kg Weight 83.007 kg Weight 83.007 kg Physical Exam Narrative: General: No acute distress, AO x3 HEENT: PERRLA, pupils bilaterally equal and reactive Chest: Normal vesicular breath sounds, diffuse rhonchi out of the lung tarango equal good air entry bilaterally CVS: S1-S2 regular, no murmurs, no tachycardia, no gallops, no rubs Abdomen: Soft, nontender, no organomegaly, bowel sounds present Neuro: No focal deficits, no facial deformity, AO x3, power 5/5 in all limbs Data : 11/24/21 05:00 11/24/21 05:00 A&P Assessment and plan (1) Chest pain: Status: Acute (2) CAD (coronary artery disease): Status: Acute (3) Hypertension: Status: Acute (4) Noncompliance: Status: Acute (5) Smoker: Status: Acute (6) Chronic alcoholism: Status: Acute (7) Anorexia: Status: Acute Plan 66-year-old gentleman past medical history of CAD, post PCI around 4 years ago, noncompliant to medications presented with ongoing chest pain for last 1 month worsening for last 1 week. This is her second visit over the last 2 days to the ER. PE ruled out on previous visit. Chest pain: Though atypical but given history of CAD and noncompliance of medications it would be important to rule out ACS. Pain is reproducible. Less likely pericarditis. Check ESR, CRP. Troponin cycled and negative. Continue aspirin, statin, metoprolol 50 mg twice daily. Echocardiogram result shows an EF of 55 to 60% without diastolic dysfunction. Plan for Lexiscan stress test in a.m. PE ruled out with a CTA done on 11/22. No concern of malignancy on CT imaging. Cannot rule out costochondritis as pain is reproducible. Hypertension: Supposed to be on losartan metoprolol as an outpatient. Noncompliant. Monitor blood pressures. Target blood pressure less than 140/90 on Hg. Restart losartan and metoprolol. Anorexia: Most likely secondary to chronic alcohol abuse. Family concern of malignancy given significant family history of cancer. CT chest done recently negative for any masses. Patient complaining of nausea, vomiting along with alternating constipation and diarrhea. Last colonoscopy more than 5 years ago. Will check CT abdomen pelvis. Chronic alcoholism: [facility] protocol. Discussed in detail with patient regarding abstinence. Smoking abstinence. Replete vitamin B12, folate levels. Full code. Regular diet. Famotidine for PUD prophylaxis Lovenox for DVT prophylaxis. Attestations Medical Necessity Statement*: Requires further hospitalization for further evaluation of atypical chest pain in a patient with history of CAD, post PCI, noncompliance, chronic alcoholism Time Spent in Patient Care: Greater than 35 minutes Coding Level of Care Code Acute Director Software Development for Giancarlo Alined Diagnoses Chest pain R07.9 CAD (coronary artery disease) I25.10 Hypertension I10 Noncompliance Z91.19 Smoker F17.200 Chronic alcoholism F10.20 Anorexia R63.0
--- NOTE | 2021-11-24 14:12 | CTR_ITS ---
PROCEDURE INFORMATION: Exam: CT Abdomen And Pelvis Without Contrast Exam date and time: 11/24/2021 2:58 PM Age: 66 years old Clinical indication: Constipation and nausea and vomiting; Additional info: N/v, constipation TECHNIQUE: Imaging protocol: Computed tomography of the abdomen and pelvis without contrast. Radiation optimization: All CT scans at this facility use at least one of these dose optimization techniques: automated exposure control; mA and/or kV adjustment per patient size (includes targeted exams where dose is matched to clinical indication); or iterative reconstruction. COMPARISON: CT angio chest PE protcl [id number] 11/22/2021 1:06 PM RADIATION DOSE METRICS: Total DLP (mGy-cm): 517.56 FINDINGS: Lungs: minimal basilar linear scarring-atelectasis. Heart: Normal heart size with coronary calcification. Liver: Mild hepatomegaly with steatosis. No cirrhosis. Gallbladder and bile ducts: Normal. No calcified stones. No ductal dilation. Pancreas: Normal. No ductal dilation. Spleen: Normal. No splenomegaly. Adrenal glands: Normal. No mass. Kidneys and ureters: No obstructing calculus. No hydronephrosis. Stomach and bowel: Moderate amount of fecal retention. No obvious bowel dilatation, pneumatosis or suspicious bowel wall thickening however assessment is limited due to lack of contrast. Probable mild colonic diverticulosis. Appendix: Normal appendix. Intraperitoneal space: Unremarkable. No free air. No significant fluid collection. Vasculature: No abdominal aortic aneurysm. Extensive arterial calcifications. Lymph nodes: No enlarged lymph nodes. Urinary bladder: Unremarkable as visualized. Reproductive: Unremarkable as visualized. Bones/joints: No acute fracture. Soft tissues: No acute findings. CT/CT abdomen pelvis wo con [id number] IMPRESSION: 1. Mild hepatomegaly with steatosis. No cirrhosis. 2. Moderate stool burden with probable mild colonic diverticulosis. No acute bowel findings otherwise. Somewhat limited exam due to lack of contrast.
[2021-11-24 14:40] LABS: C Reactive Protein 10.6 mg/L (0.0-4.9)
[2021-11-24 15:11] LABS: Erythrocyte Sedimentation Rate 21 mm/hr (0-10)
[2021-11-24] MEDS: enoxaparin 30 mg/0.3 mL Syringe SUBCUT (16:21)
[2021-11-25 04:00] VITALS: BP 121/91; PULSE 67; RESP 18; TEMP 36.6; O2SAT 99
[2021-11-25 04:33] VITALS: PULSE 62
--- NOTE | 2021-11-25 06:30 | ECG_ITS ---
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 Interpretive Statements NAME OF STUDY: LEXISCAN SESTAMIBI STRESS TEST INDICATION: Coronary Artery Disease, unstable angina PROCEDURE: At the baseline, the blood pressure was 150/100 mmHg, oxygen saturation 98% with a heart rate of 74 bpm. The electrocardiogram showed normal sinus rhythm, normal axis with poor anterior R wave progression. The Lexiscan was infused over a period of 20 seconds. A total of 0.4 milligrams of Lexiscan was infused. The stress phase was continued for a total of 5 minutes. Heart rate at the end of the stress phase was 91 bpm, oxygen saturation 98% with a blood pressure of 142/95 mmHg. The EKG at the peak infusion revealed sinus rhythm with no significant ST-T wave changes. Patient developed 8/10 chest pain during stage II of exercise that resolved by discharge. Sestamibi was injected 20 seconds after the Lexiscan infusion. Blood pressure at the end of the recovery phase was 131/91 mmHg, oxygen saturation 96% with a heart rate of 90 beats per minute. CONCLUSION: 1. Normal EKG response to LexiScan infusion. 2. No LexiScan induced chest pain or cardiac arrhythmia. 3. Normal blood pressure and heart rate response. 4. Sestamibi/sestamibi perfusion scan pending; see separate report. Electronically Signed On 11-25-2021 12:43:39 CDT by Niki Metzger M.D. [id number]
[2021-11-25] MEDS: regadenoson 0.4 Mg/5 ml Syringe IVP (07:46)
[2021-11-25 07:59] VITALS: BP 131/91; PULSE 91
--- NOTE | 2021-11-25 09:17 | PC.NURSE ---
Patient left floor approximately 0750 for procedure and returned at 0900
[2021-11-25] MEDS: aspirin 81 mg EC Tablet PO (10:20)
[2021-11-25] MEDS: ferrous gluconate 324 mg Tablet PO (10:20)
[2021-11-25] MEDS: famotidine 20 mg Tablet PO (10:20)
[2021-11-25] MEDS: magnesium hydroxide 30 mL UDC PO (10:20)
[2021-11-25] MEDS: nicotine 14 mg Patch 1 PATCH TRANSDERMA (10:20)
[2021-11-25 10:21] VITALS: BP 149/97
[2021-11-25] MEDS: losartan 50 mg Tablet PO (10:21)
[2021-11-25] MEDS: cyanocobalamin 1,000 mcg Tablet 1000 MCG PO (10:21)
[2021-11-25] MEDS: folic acid 1 mg Tablet PO (10:21)
[2021-11-25] MEDS: lactulose oral liq 20 gm/30 mL UDC 10 GM PO (10:27)
[2021-11-25] MEDS: metoprolol tartrate 50 mg Tablet PO (10:32)
[2021-11-25 11:52] VITALS: BP 120/81; PULSE 53; RESP 20; TEMP 36.6; O2SAT 98
--- NOTE | 2021-11-25 12:59 | P.DS_ITS ---
Discharge Providers Date of Admission: 11/23/21 12:01 Date of Discharge: November 25, 2021 Attending Provider at Admission: Geo Perdomo MD Attending Provider at Discharge: Geo Perdomo MD Primary Care Provider: Nicholas Marte MD Diagnoses at Discharge Discharge Diagnosis (1) Chest pain: Status: Acute (2) CAD (coronary artery disease): Status: Acute (3) Hypertension: Status: Acute (4) Noncompliance: Status: Acute (5) Smoker: Status: Acute (6) Chronic alcoholism: Status: Acute (7) Anorexia: Status: Acute (8) Costochondritis: Status: Acute (9) GERD (gastroesophageal reflux disease): Status: Acute Reason for Visit Reason for Visit: cp Hospital Course Hospital Course Tristen Chaves is a 66 year old male with past medical history of CAD, post PCI to LAD and PDA in 2017, hypertension, noncompliance of medication, current smoker, chronic alcoholism, depression not on medications.? Patient states he has not taken his medications for a long time.? He is smokes a quarter to half a pack daily.? Drinks at least 4-5 times a week.? Usually drinks vodka cannot quantify. He presented the ER on 11/22 for ongoing left-sided localized, parasternal chest pain which was nonradiating, not referring associated with dizziness and nausea.? Patient states he has been having similar chest pain for over a month but getting worse for over a week.? He was advised to stay in in hospital for further evaluation and management but he declined and was discharged.? Overnight he continued to have similar pain so he presented back to the ER today.? Pain is aggravated on ambulation, taking a deep breath.? Pain associated with dizziness, nausea but not with vomiting.? Denies any PND.? Denies any hemoptysis, shortness of breath, fevers, cough.? As per patient and patient's family he has been losing weight for over a year.? He is complaining of constipation.? Has not had a colonoscopy ever in life. On review of labs his troponin cycle from 11/22 was negative.? CTA chest was done which was negative for pulmonary embolism or lung masses.? Today again troponin cycle so far has remained negative.? Patient is agreeable to stay at least till Thursday for Lexiscan stress test. Patient was in the hospital further evaluation and management. Patient continued to have chest pain on and off which was reproducible on palpation on taking deep breath. Patient doing hemodynamic stable and afebrile. His cardiac medications were restarted which he tolerated well and his blood pressures remained stable. He underwent Lexiscan stress test on 11/25 which was negative for any acute ischemia. During hospitalization he complained of nausea, vomiting along with constipation for which EP abdomen pelvis was done to rule o ut small bowel obstruction. It is believed her symptoms are most likely secondary to costochondritis versus GERD from chronic alcoholism. He has been advised in detail to continue his medications going forward, to continue following up with primary care provider as an outpatient. To abstain from alcohol and smoking as much as possible. Physical Exam Narrative: General: No acute distress, AO x3 HEENT: PERRLA, pupils bilaterally equal and reactive Chest: Normal vesicular breath sounds, diffuse rhonchi out of the lung tarango equal good air entry bilaterally CVS: S1-S2 regular, no murmurs, no tachycardia, no gallops, no rubs Abdomen: Soft, nontender, no organomegaly, bowel sounds present Neuro: No focal deficits, no facial deformity, AO x3, power 5/5 in all limbs Discharge Data Studies Completed and Pending Completed Studies During Hospitalization Category Date Time Status CT abdomen pelvis wo con [id number] Routine Cat Scan 11/24/21 14:12 Completed Sestamibi Stress Test Request Routine Exams 11/25/21 06:30 Completed XR chest 1V portable [id number] Stat Exams 11/23/21 10:04 Completed NM honey perf SPECT r/s* [id number] Routine Nuc Med 11/25/21 13:52 Completed CV. echo complete* [id number] Routine Ultrasound 11/23/21 13:52 Completed Pending at discharge Category Date Time Status Sestamibi Stress Test Request Routine Exams 11/23/21 13:52 Stop Req Radiology Impressions Chest X-Ray 11/23/21 10:04 IMPRESSION: No acute cardiopulmonary abnormality. Abdomen/Pelvis CT 11/24/21 14:12 IMPRESSION: 1. Mild hepatomegaly with steatosis. No cirrhosis. 2. Moderate stool burden with probable mild colonic diverticulosis. No acute bowel findings otherwise. Somewhat limited exam due to lack of contrast. Lexiscan stress test: PERFUSION FINDINGS ?SPECT images demonstrate homogeneous tracer distribution throughout the ?myocardium. ?FUNCTIONAL RESULTS ? ? (calculated via Gated SPECT) ? Stress Image LV EF (%):? ? 63 ? Stress EDV (mL):91 ? TID:? 0.97 ? Stress ESV (mL):34 ?FUNCTIONAL FINDINGS: ?The left ventricle is normal in size. Transient Ischemia Dilatation of 0.97. ?There is normal left ventricular systolic function. ?The left ventricular ejection fraction is normal with a value of 63%. ?There is normal left ventricular wall thickening. ?Normal end-diastolic and end-systolic volumes. ?IMPRESSIONS ?1. Myocardial perfusion imaging is normal. ?2. Overall left ventricular systolic function is normal without regional wall ?motion abnormalities, LVEF=63%. ?3. No EKG changes with Lexiscan infusion.? Refer to separate report for ?details. ?Niki Metzger MD ?(Electronically Signed) ?Final Date:? ? ? 25 November 2021 ? 12:53 Echocardiogram: CONCLUSIONS ?LV systolic function is normal with EF of 55 to 60%. ?Diastolic function is normal. ?Trace tricuspid regurgitation. ?Compared to prior echocardiogram from 2017, no significant ?changes are seen. ?Douglas Hooper MD ?(Electronically Signed) ?Final Date:? ? ? 23 November 2021 ? 15:32 S Laboratory Results WBC 7.3 10^3/uL (4.0-10.0) 11/24/21 05:00 RBC 3.80 10^6/uL (4.1-5.3) L 11/24/21 05:00 Hgb 12.9 g/dL (11.7-16.6) 11/24/21 05:00 Hct 37.9 % (42.0-52.0) L 11/24/21 05:00 MCV 99.7 fl (80-94) H 11/24/21 05:00 MCH 33.9 pg (28.0-34.0) 11/24/21 05:00 MCHC 34.0 g/dL (30.0-36.0) 11/24/21 05:00 RDW 13.2 % (12.1-15.1) 11/24/21 05:00 Plt Count 218 10^3/cmm (130-400) 11/24/21 05:00 MPV 9.9 fL (7.4-10.4) 11/24/21 05:00 Neut % (Auto) 62.1 % 11/24/21 05:00 Lymph % (Auto) 21.9 % 11/24/21 05:00 Elk % (Auto) 10.9 % 11/24/21 05:00 Eos % (Auto) 4.3 % 11/24/21 05:00 Baso % (Auto) 0.4 % 11/24/21 05:00 Neut # (Auto) 4.52 10^3/uL (1.8-7.7) 11/24/21 05:00 Lymph # (Auto) 1.6 10^3/uL (0.8-4.8) 11/24/21 05:00 Elk # (Auto) 0.8 10^3/uL (0.2-0.9) 11/24/21 05:00 Eos # (Auto) 0.3 10^3/uL (0.0-0.8) 11/24/21 05:00 Baso # (Auto) 0.0 10^3/uL (0.0-0.1) 11/24/21 05:00 Nucleated RBC % (auto) 0 % 11/24/21 05:00 Nucleated RBCs # 0.0 /100WBC 11/24/21 05:00 ESR 21 mm/hr (0-10) H 11/24/21 05:00 Sodium 137 mmol/L (136-145) 11/24/21 05:00 Potassium 3.8 mmol/L (3.5-5.1) 11/24/21 05:00 Chloride 98 mmol/L (98-107) 11/24/21 05:00 Carbon Dioxide 31 mmol/L (22-29) H 11/24/21 05:00 Anion Gap 11.8 (5-19) 11/24/21 05:00 BUN 16 mg/dL (8-23) 11/24/21 05:00 Creatinine 0.9 mg/dL (0.7-1.2) 11/24/21 05:00 GFR Calculation 84.7 mL/min (90-130) L 11/24/21 05:00 Glucose 97 mg/dL (65-115) 11/24/21 05:00 Estimat Average Glucose 111 11/23/21 10:05 Hemoglobin A1c 5.5 % (4.0-6.0) 11/23/21 10:05 Calculated Osmolality 285 mOsm/kg (285-295) 11/24/21 05:00 Calcium 8.7 mg/dL (8.5-10.5) 11/24/21 05:00 Phosphorus 2.3 mg/dL (2.5-4.5) L 11/24/21 05:00 Magnesium 1.6 mg/dL (1.7-2.3) L 11/24/21 05:00 Iron 63 ug/dL (59-158) 11/23/21 10:05 TIBC 251 mcg/dl 11/23/21 10:05 % Saturation 25.0 % (20-50) 11/23/21 10:05 Unsat Iron Binding 188 ug/dL (112-347) 11/23/21 10:05 Total Bilirubin 0.7 mg/dL (0.15-1.2) 11/24/21 05:00 AST 36 U/L (0-40) 11/24/21 05:00 ALT 27 U/L (0-41) 11/24/21 05:00 Alkaline Phosphatase 98 U/L (40-130) 11/24/21 05:00 Ammonia 20 umol/L (16-60) 11/23/21 15:43 Troponin T Baseline 10 ng/L (0-15) 11/23/21 10:05 Troponin T 120 Minute 8.45 ng/L (0-15) 11/23/21 12:17 Delta Troponin T -1.55 ABS# (0-10) L 11/23/21 12:17 Troponin T Hi Sens 6Hr 9.31 ng/L (0-15) 11/23/21 15:43 Troponin T Hi Sens 6Hr Delta -0.69 ng/L (0-12) L 11/23/21 15:43 C-Reactive Protein 10.6 mg/L (0.0-4.9) H 11/24/21 05:00 Total Protein 6.6 g/dL (6.6-8.7) 11/24/21 05:00 Albumin 3.7 g/dL (3.5-5.2) 11/24/21 05:00 Globulin 2.9 g/dL (1.3-4.6) 11/24/21 05:00 Triglycerides 117 mg/dL (0-150) 11/24/21 05:00 Cholesterol 189 mg/dL (0-200) 11/24/21 05:00 LDL Cholesterol, Calc 107 mg/dL (50-129) 11/24/21 05:00 Total VLDL Cholesterol 23 mg/dL (0-30) 11/24/21 05:00 HDL Cholesterol 59 mg/dL (60-100) L 11/24/21 05:00 Cholesterol/HDL Ratio 3.20 mg/dL (1.0-5.00) 11/24/21 05:00 Vitamin B12 198 pg/mL (232-1245) L 11/23/21 10:05 Folate 3.1 ng/mL (4.5-32.2) L 11/23/21 15:43 TSH 0.95 uIU/mL (0.27-4.20) 11/23/21 10:05 TSH Cancelled 11/23/21 10:05 Urine Color Yellow (Yellow) 11/23/21 20:45 Urine Appearance Clear (CLEAR) 11/23/21 20:45 Urine pH 8 (5-7) H 11/23/21 20:45 Ur Specific Marshall 1.010 (1.005-1.030) 11/23/21 20:45 Urine Protein Neg (Negative) 11/23/21 20:45 Urine Glucose (UA) Trace (Normal) H 11/23/21 20:45 Urine Ketones Negative (Negative) 11/23/21 20:45 Urine Blood Neg (Negative) 11/23/21 20:45 Urine Nitrate Negative (Negative) 11/23/21 20:45 Urine Bilirubin Neg (Negative) 11/23/21 20:45 Prot Sulfosalicylic Acd Negative (Negative) 11/23/21 20:45 Urine Urobilinogen Neg mg/dL (Negative) 11/23/21 20:45 Ur Leukocyte Esterase Negative (Negative) 11/23/21 20:45 Urine Opiates Screen Positive ng/mL (Negative) H 11/23/21 20:45 Ur Barbiturates Screen Negative ng/mL (Negative) 11/23/21 20:45 Ur Phencyclidine Scrn Negative ng/mL (Negative) 11/23/21 20:45 Ur Amphetamines Screen Negative ng/mL (Negative) 11/23/21 20:45 U Benzodiazepines Scrn Positive ng/mL (Negative) H 11/23/21 20:45 Urine Cocaine Screen Negative ng/mL (Negative) 11/23/21 20:45 U Marijuana (THC) Screen Positive ng/mL (Negative) H 11/23/21 20:45 Ethyl Alcohol 135 mg/dL (0-10) H 11/23/21 10:05 Vitals Last Vital Signs Temp 97.9 F 11/25/21 11:52 Pulse 53 L 11/25/21 11:52 Resp 20 H 11/25/21 11:52 BP 120/81 11/25/21 11:52 Pulse Ox 98 11/25/21 11:52 O2 Del Method 11/25/21 11:52 O2 Flow Rate 18 11/24/21 20:04 Discharge Plan Discharge Patient Disposition: Home Condition: Stable Prescriptions: New famotidine 20 mg Tablet 20 mg PO BID Qty: 60 0RF metoprolol tartrate 50 mg Tablet 50 mg PO BID@0900,2100 Qty: 60 0RF losartan 50 mg Tablet 50 mg PO DAILY Qty: 30 0RF cyanocobalamin (vitamin B-12) [Vitamin B-12] 1,000 mcg Tablet 1,000 mcg PO DAILY Qty: 30 0RF folic acid 1 mg Tablet 1 mg PO BID Qty: 60 0RF atorvastatin 40 mg tablet 40 mg PO DAILY Qty: 30 0RF Continued aspirin 81 mg Tablet,Delayed Release (Dr/Ec) 81 mg PO DAILY Qty: 30 0RF Discontinued metoprolol tartrate 50 mg Tablet 50 mg PO DAILY Discharge Orders: Discharge Order (Routine); Ordered 11/25/21 Ordered By: Geo Perdomo Referrals: Glenn Bryan [Referring] - 1 week (Please arrange new patient appoi ntment/hospital follow up at [place] location.) Discharge Diet: Cardiac Discharge Activity: Resume usual activity and Increase activity as tolerated Patient Instructions: Opioid Safety Activity Restrictions/Additional Instructions: Please make sure that you continue take your medications as discussed in detail. Aspirin, metoprolol, losartan, atorvastatin you have medications for your blood pressure and your heart. Please follow the primary care provider on set appointment. Please abstain from alcohol and smoking as much as possible. Discharge Attestations Time Spent in Discharge Care*: greater than 30 min Specific Discharge Activities: educating patient, discussing with catalytic case operator/social workers/dc planners, documenting/other paperwork and evaluating patient/reviewing data Time Spent in Smoking Cessation: more than 10 minutes Status at Discharge: Cognitive status at discharge: cognitively intact , Behavioral status at discharge: cooperative , Functional status at discharge: independent ambulation , Overall status at discharge: patient is back to baseline Quality Metrics Clinical Quality Measures [ No reported AMI, CVA or VTE this stay] Coding Level of Care Code Acute Chg DC note Diagnoses Chest pain R07.9 CAD (coronary artery disease) I25.10 Hypertension I10 Noncompliance Z91.19 Smoker F17.200 Chronic alcoholism F10.20 Anorexia R63.0 Costochondritis M94.0 GERD (gastroesophageal reflux disease) K21.9
--- NOTE | 2021-11-25 13:52 | NMCV_ITS ---
NM honey perf SPECT r/s* [id number] Tristen Chaves Age: 66 Gender: M : 1955 Exam Date: 11/25/2021 13:52 Ordering Phys: Geo Perdomo MD Technologist: PRO Ahuja Exam Location: [facility] Indications: CHEST PAIN STRESS TEST Please see separate stress test report in [facility] for full findings IMAGE PROTOCOL Rest/Stress 1 Lexiscan Day Radiopharmaceutical Dose (mCi) Administration Site Administered by Rest: Tc-99m 10.8 IV PRO Dukes Sestamibi Stress:Tc-99m 32.6 IV PRO Dukes Sestamibi Rest: 25-Nov-2021 60 Discovery 630 Stress: 25-Nov-2021 30 Discovery 630 0.4mg Lexiscan. Images obtained in supine and prone position. SPECT RESULTS Technical Quality: Excellent Raw Data Analysis: Normal Image Corrections: No attenuation or motion correction applied Summed Stress Score: 0 Summed Rest Score: 0 Summed Difference Score: 0 PERFUSION FINDINGS SPECT images demonstrate homogeneous tracer distribution throughout the myocardium. FUNCTIONAL RESULTS (calculated via Gated SPECT) Stress Image LV EF (%): 63 Stress EDV (mL):91 TID: 0.97 Stress ESV (mL):34 FUNCTIONAL FINDINGS: The left ventricle is normal in size. Transient Ischemia Dilatation of 0.97. There is normal left ventricular systolic function. The left ventricular ejection fraction is normal with a value of 63%. There is normal left ventricular wall thickening. Normal end-diastolic and end-systolic volumes. IMPRESSIONS 1. Myocardial perfusion imaging is normal. 2. Overall left ventricular systolic function is normal without regional wall motion abnormalities, LVEF=63%. 3. No EKG changes with Lexiscan infusion. Refer to separate report for details. Niki Metzger MD (Electronically Signed) Final Date: 25 November 2021 12:53 S
[2021-11-25 15:41] VITALS: BP 120/81; PULSE 53; RESP 20; TEMP 36.6; O2SAT 98
== END 2021-11-25 15:15 | disposition home or self-care (01) ==
LOC: ER 10:14 → MEDSURG 13:24
PROVIDERS: Admitting Provider Student in an Organized Health Care Education/Training Program; Emergency Provider Emergency Medicine; PCP Family Medicine; Visit Provider Student in an Organized Health Care Education/Training Program
DX: R07.9 Chest pain, unspecified (principal); I25.10 Atherosclerotic heart disease of native coronary artery without angina pectoris; I25.2 Old myocardial infarction; M94.0 Chondrocostal junction syndrome [Tietze]; I10 Essential (primary) hypertension; R63.0 Anorexia; Z68.22 Body mass index [BMI] 22.0-22.9, adult; F10.20 Alcohol dependence, uncomplicated; K21.9 Gastro-esophageal reflux disease without esophagitis; E78.5 Hyperlipidemia, unspecified; F17.200 Nicotine dependence, unspecified, uncomplicated; Z79.82 Long term (current) use of aspirin; Z91.14 Patient's other noncompliance with medication regimen; Z95.5 Presence of coronary angioplasty implant and graft
CPT/HCPCS: 36415; 71045; 74176; 78452; 80048; 80053; 80061; 80306; 80307; 81003; 82140; 82607; 82746; 83036; 83540; 83550; 83735; 84100; 84443; 84484; 85025; 85651; 86140; 93005; 93017; 93306; 96372; 96374; 96375; 99285; A9500; G0378; J1650; J2270; J2405; J2785; J3420; J7799